=== PATIENT | female | born 1960 | race Caucasian/White ===

== ENCOUNTER 2019-11-16 10:45 | Day surgery (SDC) | payer BC ==
[2019-11-13 17:56] VITALS: BMI 19.5
[~2019-11-16 10:45] MED LIST: LACTATED RINGERS 1,000 ML IV SCH; LIDOCAINE 1% (10MG/ML) FOR IV START INTRADERMA PRN
[2019-11-16 11:12] VITALS: TEMP 97.7
[2019-11-16] MEDS ORDERED: PROPOFOL 10 MG/ML 20 ML VIAL IV ONE (11:33)
--- NOTE | 2019-11-16 11:37 | P.GSHP ---
History of Present Illness H&P Date: 11/16/19 Chief Complaint: History of colon polyps Severity 9-year-old female been today for colonoscopy. She is appears history of colon polyps. Past Medical History Past Medical History: Asthma, Cancer Additional Past Medical History / Comment(s): Breast cancer 1998, tx w/ chemo, radiation. Hx colon polyps. Varicose veins. History of Any Multi-Drug Resistant Organisms: None Reported Past Surgical History: Breast Surgery Additional Past Surgical History / Comment(s): bilat varicose vein. Lt breast Lumpectomy w/ lymph node exc 1998. Port. Rt breast tumor exc, benign. Colonoscopy. Past Anesthesia/Blood Transfusion Reactions: Previous Problems w/ Anesthesia Additional Past Anesthesia/Blood Transfusion Reaction / Comment(s): woke up x1 during vein surgery Smoking Status: Current every day smoker - Past Family History Father Family Medical History: Cancer Additional Family Medical History / Comment(s): prostate, lung Brother(s) Family Medical History: Cancer Additional Family Medical History / Comment(s): lung, mets to brain Mother Family Medical History: Deep Vein Thrombosis (DVT), Pulmonary Embolus Medications and Allergies Home Medications Medication Instructions Recorded Confirmed Type Multivitamins, Thera [Multivitamin] 1 tab PO DAILY 05/01/15 11/13/19 History Cholecalciferol [Vitamin D3 (25 1,000 unit PO DAILY 11/13/19 11/13/19 History Mcg = 1000 Iu)] Ibuprofen [Advil] 400 - 600 mg PO Q8HR PRN 11/13/19 11/13/19 History Levocetirizine Dihydrochloride 5 mg PO DAILY 11/13/19 11/13/19 History [Xyzal] Allergies Allergy/AdvReac Type Severity Reaction Status Date / Time latex Allergy Rash/Hives Verified 11/16/19 11:01 neomycin [Neomycin] Allergy Rash/Hives Verified 11/16/19 11:01 Surgical - Exam Vital Signs Temp Pulse Resp BP Pulse Ox 97.7 F 83 16 121/58 94 L 11/16/19 11:10 11/16/19 11:10 11/16/19 11:10 11/16/19 11:10 11/16/19 11:10 - General well developed, well nourished, no distress - Eyes PERRL - ENT normal pinna - Neck no masses - Respiratory normal expansion - Cardiovascular Rhythm: regular - Abdomen Abdomen: soft, non tender Assessment and Plan Assessment: History of colonic polyps. We'll perform colonoscopy.
--- NOTE | 2019-11-16 11:45 | P.OP ---
Date of Procedure: 11/16/19 Preoperative Diagnosis: History of colonic polyps Postoperative Diagnosis: Diverticulosis Procedure(s) Performed: Colonoscopy Anesthesia: MAC Surgeon: Chris Merritt Pathology: none sent Condition: stable Disposition: PACU Description of Procedure: The patient's placed on the endoscopy table in the lateral position. She received IV sedation. Digital rectal exam was performed which revealed a few external hemorrhoids. Flexible colonoscope was then placed patient anus passed throughout the entire colon. The ileocecal valve was visualized. The cecum, ascending and transverse colon appeared normal. In the descending; there is moderate diverticular changes. Scope was then brought back the rectum this appeared normal. Scope was withdrawn for patient.
[2019-11-16 12:03] VITALS: BP 103/63; PULSE 80; RESP 18
== END 2019-11-16 12:27 | disposition home or self-care (01) ==
LOC: ORWHC2ENDO 10:45
PROVIDERS: ATTEND Surgery
DX: Z12.11 Encounter for screening for malignant neoplasm of colon (principal); K57.30 Diverticulosis of large intestine without perforation or abscess without bleeding; K64.4 Residual hemorrhoidal skin tags; Z86.010 Personal history of colon polyps; Z91.040 Latex allergy status; Z88.1 Allergy status to other antibiotic agents; J45.909 Unspecified asthma, uncomplicated; I83.93 Asymptomatic varicose veins of bilateral lower extremities; F17.210 Nicotine dependence, cigarettes, uncomplicated; Z79.899 Other long term (current) drug therapy; Z85.3 Personal history of malignant neoplasm of breast; Z80.1 Family history of malignant neoplasm of trachea, bronchus and lung; Z80.42 Family history of malignant neoplasm of prostate; Z82.49 Family history of ischemic heart disease and other diseases of the circulatory system; Z92.21 Personal history of antineoplastic chemotherapy; Z92.3 Personal history of irradiation; Z98.890 Other specified postprocedural states; Z79.1 Long term (current) use of non-steroidal anti-inflammatories (NSAID)
CPT/HCPCS: J2704; G0105; 45378

== ENCOUNTER → 2020-06-05 | Outpatient (CLI) | payer BC ==
--- NOTE | 2020-06-05 09:42 | MM ---
Reason for exam: follow-up at short interval from prior study. Last mammogram was performed 1 year ago. History: Patient is postmenopausal and has history of breast cancer at age 38. Right Mammotome Panel of the right breast, January 11, 2005. Benign excisional biopsy of the right breast, 2002. Radiation therapy of the left breast, May 1999. Malignant excisional biopsy of the left breast, August 25, 1998. Lumpectomy of the left breast, 1998. Chemotherapy. Took hormonal contraceptives beginning at age 20. Took tamoxifen for 4 years 10 months beginning at age 38. Physical Findings: Nurse Summary: 0.3cm nodule in the left breast at 3 o'clock (nurse TM). MG 3D Diag Mammo W/Cad JUANA Bilateral CC and MLO view(s) were taken. Prior study comparison: May 24, 2019, bilateral MG diagnostic mammo w CAD JUANA. April 29, 2015, bilateral MG screening mammo w CAD. The breast tissue is heterogeneously dense. This may lower the sensitivity of mammography. Stable benign calcifications. Stable post operative changes. Persistent nodularity 6 o'clock right breast. These results were verbally communicated with the patient and result sheet given to the patient on 06/05/20. ASSESSMENT: Incomplete: need additional imaging evaluation, BI-RAD 0 RECOMMENDATION: Ultrasound of both breasts. Manage patient on a clinical basis.
--- NOTE | 2020-06-05 09:45 | USB ---
Reason for exam: additional evaluation requested from abnormal screening. History: Patient is postmenopausal and has history of breast cancer at age 38. Right Mammotome Panel of the right breast, January 11, 2005. Benign excisional biopsy of the right breast, 2002. Radiation therapy of the left breast, May 1999. Malignant excisional biopsy of the left breast, August 25, 1998. Lumpectomy of the left breast, 1998. Chemotherapy. Took hormonal contraceptives beginning at age 20. Took tamoxifen for 4 years 10 months beginning at age 38. US Breast Limited BILAT Right limited breast ultrasound including focal area of concern, retroareolar and axilla demonstrates probable dense tissue at 6 o'clock, elongates antiradial image. Left limited breast ultrasound including focal area of concern, retroareolar and axilla demonstrates a 0.6 x 0.4 x 0.4cm large calcification at 4 o'clock. These results were verbally communicated with the patient and result sheet given to the patient on 06/05/20. ASSESSMENT: Benign, BI-RAD 2 RECOMMENDATION: Follow-up diagnostic mammogram of both breasts in 1 year. Manage patient on a clinical basis.
== END | disposition home or self-care (01) ==
LOC: RADMAMWWP 07:02
PROVIDERS: ATTEND Family Medicine
DX: R92.1 Mammographic calcification found on diagnostic imaging of breast (principal); R92.2 Inconclusive mammogram; Z85.3 Personal history of malignant neoplasm of breast; Z78.0 Asymptomatic menopausal state
CPT/HCPCS: 77062; 77066

== ENCOUNTER → 2021-09-15 | Outpatient (CLI) | payer BC ==
--- NOTE | 2021-09-15 08:58 | MM ---
Reason for Exam: Follow-up at short interval from prior study. Last mammogram was performed 1 year(s) and 4 month(s) ago. Patient History: Menarche at age 14. First Full-Term at age 23. Postmenopausal. Breast cancer, left, age 38. Hormonal Contraceptives, from age 20 until age 26. Tamoxifen for 4 years, 10 months, from age 38 until age 44. 1998, Lumpectomy on the Left side. 2002, Benign Excisional Biopsy on the right side. 01/11/2005, Core Biopsy on the Right side. 08/25/1998, Malignant Excisional Biopsy on the left side. 05/1999, Radiation Therapy on the left side. Chemotherapy. Tissue Density: The breast tissue is heterogeneously dense. This may lower the sensitivity of mammography. Findings: Analyzed By CAD. Postsurgical and posttreatment changes left breast. Benign well cystic calcification laterally left breast. Possible distortion central posterior left cc view seems to have been present on the recent prior but not as well seen on older priors. On additional views, the area becomes less defined. Precautionary six-month follow-up recommended. Additional areas of asymmetric density superior MLO views of both sides do not persist. Overall Assessment: Probably benign, BI-RAD 3 Management: Diagnostic Mammogram of the left breast in 6 months. 1. Precautionary six-month follow-up diagnostic left breast mammogram. 2. Patient should continue monthly self breast exams. A clinical breast exam by your physician is recommended on an annual basis. 3. This exam should not preclude additional follow-up of suspicious palpable abnormalities. Electronically signed and approved by: Juliette Jimenez M.D. Radiologist
[2021-09-15 14:26] LABS: HCT 45.4 % (37.2-46.3); HGB 14.5 g/dL (12.0-15.0); MCH 29.4 pg (27.0-32.0); MCHC 31.9 g/dL (32.0-37.0); MCV 92.1 fL (80.0-97.0); Mean Platelet Volume 10.1 fL (9.5-12.2); NRBC Per 100 WBC 0 /100 WBCS (0.0-0.0); Platelet Count 291 X 10*3/uL (140-440); RBC 4.93 X 10*6/uL (4.10-5.20); RDW 12.7 % (11.5-14.5); WBC 4.79 X 10*3/uL (4.50-10.00)
[2021-09-15 15:10] LABS: BUN/Creat Ratio 16.02 Ratio (12.00-20.00); Chol/HDL Ratio 2.66 Ratio; Globulin 1.8 g/dL (1.6-3.3); LDL Cholesterol,Calculated 104.3 mg/dL (0.0-131.0); VLDL Calculation 10.64 mg/dL (5.00-40.00)
[2021-09-15 15:11] LABS: ALT 17 U/L (8-44); AST 28 U/L (13-35); Albumin 4.5 g/dL (3.8-4.9); Albumin/Globulin Ratio 2.49 (1.60-3.17); Alkaline Phosphatase 61 U/L (41-126); Blood Urea Nitrogen 11.2 mg/dL (9.0-27.0); Calcium 9.9 mg/dL (8.7-10.3); Carbon Dioxide 29.5 mmol/L (20.0-27.5); Chloride 103 mmol/L (96-109); Glucose 74 mg/dL (70-110); Non-African American GFR(CKD) 94.9 (60.0-200.0); Potassium 5.1 mmol/L (3.5-5.5); Sodium 141 mmol/L (135-145); Total Protein 6.3 g/dL (6.2-8.2)
== END | disposition home or self-care (01) ==
LOC: RADMAMWWP 08:07
PROVIDERS: ATTEND Family Medicine
DX: R92.8 Other abnormal and inconclusive findings on diagnostic imaging of breast (principal); Z80.3 Family history of malignant neoplasm of breast; Z78.0 Asymptomatic menopausal state
CPT/HCPCS: 77062; 77066; 80053; 80061; 82306; 84443; 85027

== ENCOUNTER → 2022-05-28 | Outpatient (CLI) | payer BC ==
[2022-05-28 22:50] LABS: HGB 13.8 g/dL (12.0-15.0); MCH 29.8 pg (27.0-32.0); MCHC 32.9 g/dL (32.0-37.0); MCV 90.7 fL (80.0-97.0); Mean Platelet Volume 10.2 fL (9.5-12.2); NRBC Per 100 WBC 0 /100 WBCS (0.0-0.0); Platelet Count 329 X 10*3/uL (140-440); RBC 4.63 X 10*6/uL (4.10-5.20); RDW 13.7 % (11.5-14.5); WBC 6.37 X 10*3/uL (4.50-10.00)
[2022-05-28 23:52] LABS: ALT 24 U/L (8-44); AST 33 U/L (13-35); African American GFR (CKD) 77.7 (60.0-200.0); Albumin 4.5 g/dL (3.8-4.9); Albumin/Globulin Ratio 2.38 (1.60-3.17); Alkaline Phosphatase 88 U/L (41-126); BUN/Creat Ratio 21.57 Ratio (12.00-20.00); Calcium 9.6 mg/dL (8.7-10.3); Chloride 97 mmol/L (96-109); Chol/HDL Ratio 2.32 Ratio; Globulin 1.9 g/dL (1.6-3.3); Glucose 76 mg/dL (70-110); LDL Cholesterol,Calculated 97.6 mg/dL (0.0-131.0); Non-African American GFR(CKD) 67.1 (60.0-200.0); Potassium 5.2 mmol/L (3.5-5.5); Sodium 137 mmol/L (135-145); Total Bilirubin <0.15 mg/dL (0.30-1.20); Total Protein 6.4 g/dL (6.2-8.2); VLDL Calculation 14.56 mg/dL (5.00-40.00)
== END | disposition home or self-care (01) ==
LOC: LABWHC1 15:50
PROVIDERS: ATTEND Physician Assistant Medical
DX: I10 Essential (primary) hypertension (principal); J44.9 Chronic obstructive pulmonary disease, unspecified; M81.0 Age-related osteoporosis without current pathological fracture
CPT/HCPCS: 36415; 80053; 80061; 82306; 83036; 84443; 85027

== ENCOUNTER → 2022-08-12 | Outpatient (CLI) | payer BC ==
--- NOTE | 2022-08-12 07:43 | MM ---
Reason for Exam: Clinical finding. Last screening mammogram was performed 11 month(s) ago. Patient History: Menarche at age 14. First Full-Term at age 23. Postmenopausal. Breast cancer, left, age 38. Hormonal Contraceptives, from age 20 until age 26. Tamoxifen for 4 years, 10 months, from age 38 until age 44. 1998, Lumpectomy on the Left side. 2002, Benign Excisional Biopsy on the right side. 01/11/2005, Core Biopsy on the Right side. 08/25/1998, Malignant Excisional Biopsy on the left side. 05/1999, Radiation Therapy on the left side. Chemotherapy. Tissue Density: The breast tissue is heterogeneously dense. This may lower the sensitivity of mammography. Findings: Analyzed By CAD. Areas of concern on prior on 09/15/2021 correlate with heterogenous fibroglandular tissue on 3-D imaging. No new suspicious masses, calcifications or distortions. Overall Assessment: Benign, BI-RAD 2 Management: Screening Mammogram of both breasts in 1 year. Results were given to the patient verbally at the time of exam. Patient should continue monthly self-breast exams. A clinical breast exam by your physician is recommended on an annual basis. This exam should not preclude additional follow-up of suspicious palpable abnormalities. Note on Allyson scores and lifetime risk: 1. A Allyson score greater than 3% is considered moderate risk. If this is the case, consider specialist referral to assess eligibility for a risk reducing agent. 2. If overall lifetime risk for the development of breast cancer is 20% or higher, the patient may qualify for future screening with alternating mammogram and breast MRI. Electronically signed and approved by: Brock Marrufo DO
== END | disposition home or self-care (01) ==
LOC: RADMAMWWP 07:13
PROVIDERS: ATTEND Family Medicine
DX: R92.8 Other abnormal and inconclusive findings on diagnostic imaging of breast (principal); Z78.0 Asymptomatic menopausal state; Z85.3 Personal history of malignant neoplasm of breast
CPT/HCPCS: 77062; 77066

== ENCOUNTER → 2023-09-01 | Outpatient (CLI) | payer BC ==
[2023-09-01 10:43] LABS: HCT 45.4 % (37.2-46.3); HGB 14.6 g/dL (12.0-15.0); MCH 29.9 pg (27.0-32.0); MCHC 32.2 g/dL (32.0-37.0); MCV 92.8 FL (80.0-97.0); Mean Platelet Volume 10.1 FL (9.5-12.2); NRBC Per 100 WBC 0 X 10*3/uL (0.00-0.01); Platelet Count 310 X 10*3/uL (140-440); RBC 4.89 X 10*6/uL (4.10-5.20); WBC 4.79 X 10*3/uL (4.50-10.00)
[2023-09-01 10:54] LABS: ALT 18 U/L (8-44); AST 29 U/L (13-35); Albumin 4.4 g/dL (3.8-4.9); Albumin/Globulin Ratio 2.59 Ratio (1.60-3.17); Alkaline Phosphatase 73 U/L (41-126); BUN/Creat Ratio 25.14 Ratio (12.00-20.00); Blood Urea Nitrogen 17.6 mg/dL (9.0-27.0); Calcium 9.5 mg/dL (8.7-10.3); Carbon Dioxide 26.5 mmol/L (21.6-31.8); Chloride 101 mmol/L (96-109); Chol/HDL Ratio 2.45 Ratio; Globulin 1.7 g/dL (1.6-3.3); Glucose 80 mg/dL (70-110); LDL Cholesterol,Calculated 107.6 mg/dL (0.0-131.0); Potassium 5.4 mmol/L (3.5-5.5); Sodium 138 mmol/L (135-145); Total Bilirubin 0.3 mg/dL (0.3-1.2); Total Protein 6.1 g/dL (6.2-8.2); VLDL Calculation 8.46 mg/dL (5.00-40.00)
== END | disposition home or self-care (01) ==
LOC: LABWHC1 07:41
PROVIDERS: ATTEND Family Medicine
DX: Z00.00 Encounter for general adult medical examination without abnormal findings (principal); J43.9 Emphysema, unspecified; M85.80 Other specified disorders of bone density and structure, unspecified site; Z87.891 Personal history of nicotine dependence
CPT/HCPCS: 36415; 80053; 80061; 83036; 84443; 85027

== ENCOUNTER → 2023-09-01 | Outpatient (CLI) | payer BC ==
--- NOTE | 2023-09-05 09:46 | MM ---
Reason for Exam: Screening (asymptomatic). Last screening mammogram was performed 12 month(s) ago. Patient History: Menarche at age 14. First Full-Term at age 23. Postmenopausal. Breast cancer, left, age 38. Hormonal Contraceptives, from age 20 until age 26. Tamoxifen for 4 years, 10 months, from age 38 until age 44. 1998, Lumpectomy on the Left side. 2002, Benign Excisional Biopsy on the right side. 01/11/2005, Core Biopsy on the Right side. 08/25/1998, Malignant Excisional Biopsy on the left side. 05/1999, Radiation Therapy on the left side. Chemotherapy. Prior Study Comparison: 06/05/2020 Bilateral Diagnostic Mammogram, [facility]. 09/15/2021 Bilateral MG 3D diag mammo w/cad JUANA, [facility]. 08/12/2022 Bilateral MG 3D diag mammo w/cad JUANA, [facility]. Tissue Density: The breasts are heterogeneously dense, which may obscure small masses. Findings: Analyzed By CAD. Right breast: There is no suspicious group of microcalcifications or new suspicious mass. Benign-appearing calcifications left breast. Left breast: There is no suspicious group of microcalcifications or new suspicious mass. Overall Assessment: Benign, BI-RAD 2 Management: Screening Mammogram of both breasts in [address] [facility] will attempt to contact patient to return for supplemental views and ultrasound if indicated. Patient should continue monthly self-breast exams. A clinical breast exam by your physician is recommended on an annual basis. This exam should not preclude additional follow-up of suspicious palpable abnormalities. Note on Allyson scores and lifetime risk: 1. A Allyson score greater than 3% is considered moderate risk. If this is the case, consider specialist referral to assess eligibility for a risk reducing agent. 2. If overall lifetime risk for the development of breast cancer is 20% or higher, the patient may qualify for future screening with alternating mammogram and breast MRI. Electronically signed and approved by: Brock Marrufo DO
== END | disposition home or self-care (01) ==
LOC: RADMAMWWP 07:15
PROVIDERS: ATTEND Family Medicine
DX: Z12.31 Encounter for screening mammogram for malignant neoplasm of breast (principal); Z78.0 Asymptomatic menopausal state
CPT/HCPCS: 77063; 77067